=== PATIENT | male | born 1940 | race Caucasian/White ===

== ENCOUNTER 2016-10-16 09:15 | Emergency (ER) | payer MEDICARE, OTHER ==
[~2016-10-16] VITALS: Ht 179.1 cm; Wt 91.0 kg
[~2016-10-16 09:15] MED LIST: ALLO100 PO; AMLO5TAB96 PO; ASPI81 PO; CENTTAB9 PO; COLC1TAB7 PO; LISI-363 PO; NAPR250T57 PO; OMEP20CA5 PO; TRAV0.00 EACH EYE; ZOCO10TA PO
[2016-10-16 09:24] VITALS: BP 136/90; PULSE 99; RESP 17; TEMP 98.1; O2SAT 98
--- NOTE | 2016-10-16 09:54 | PD ---
HPI Chief Complaint: GI Complaint Time Seen by Provider: 09:54 Travel History International Travel<30 days: No Contact w/Intl Traveler<30days: No Traveled to known affect area: No History of Present Illness HPI 76-year-old male came to the emergency room with history of diarrhea since past 2 days. Patient says that last night he was unable to stop going to the bathroom. He was up every 10 minutes. The stool is runny but no blood. He does not have any other symptoms like abdominal pain or vomiting. No known sick contacts. No recent antibiotic use or hospitalization. [facility] Past Medical History Narrative Medical List of his past medical, surgical, social and family history was reviewed from the nursing note. Arthritis: Yes Cancer: Yes (MELANOMA FACE) High Cholesterol: Yes Diabetes: No Diminished Hearing: No GERD: Yes Glaucoma: Yes Gout: Yes Hepatitis: No Hiatal Hernia: Yes (GERD HX) Hypertension: Yes Inguinal Hernia: Yes Thyroid Disease: No Past Surgical History Abdominal Surgery: Yes (LIH) Cardiac Surgery: No Ear Surgery: No Endocrine Surgery: No Eye Surgery: No Genitourinary Surgery: Yes (RENAL CALC. RETRIEVAL) Gynecologic Surgery: No Oral Surgery: Yes (T & A, EXC. FB ESOPHAGUS, WISDOM TEETH EXTR.) Pacemaker: No Thoracic Surgery: No Other Surgery: Yes (HERNIA REPAIR) Social History Alcohol Use: Yes (2-3 DRINKS A WEEK) Tobacco Use: No Substance Use: No Allergies-Medications (Allergen,Severity, Reaction): Coded Allergies: No Known Allergies (Verified , 10/18/16) Comments No known drug allergies. Reported Meds & Prescriptions Reported Meds & Active Scripts Active Cipro (Ciprofloxacin HCl) 500 Mg Tab 500 Mg PO BID 5 Days Lomotil (Diphenoxylate-Atropine) 2.5-0.025 Mg Tab 2 Tab PO Q6H PRN Reported Aspirin 81 Mg Chew 81 Mg CHEW DAILY Amlodipine (Amlodipine Besylate) 5 Mg Tab 5 Mg PO DAILY Lisinopril 20 Mg Tab 20 Mg PO DAILY Omeprazole 20 Mg Tab 20 Mg PO DAILY Allopurinol 300 Mg Tab 300 Mg PO DAILY Narrative Medication List of his home medications reviewed from the nursing note. Review of Systems Except as stated in HPI: all other systems reviewed are Neg Physical Exam Narrative GENERAL: Awake, alert, no obvious distress SKIN: Focused skin assessment warm/dry. HEAD: Atraumatic. Normocephalic. EYES: Pupils equal and round. No scleral icterus. No injection or drainage. ENT: No nasal bleeding or discharge. Dry mucous membrane and coated tongue. NECK: Trachea midline. No JVD. CARDIOVASCULAR: Regular rate and rhythm. No murmur appreciated. RESPIRATORY: No accessory muscle use. Clear to auscultation. Breath sounds equal bilaterally. GASTROINTESTINAL: Abdomen soft, non-tender, nondistended. Hepatic and splenic margins not palpable. MUSCULOSKELETAL: No obvious deformities. No clubbing. No cyanosis. No edema. NEUROLOGICAL: Awake and alert. No obvious cranial nerve deficits. Motor grossly within normal limits. Normal speech. PSYCHIATRIC: Appropriate mood and affect; insight and judgment normal. Data Data Last Documented VS Orders Basic Metabolic Panel (Bmp) (10/16/16 09:59) Complete Blood Count With Diff (10/16/16 09:59) Iv Access Insert/Monitor (10/16/16 09:59) Ecg Monitoring (10/16/16 09:59) Oximetry (10/16/16 09:59) Sodium Chlor 0.9% 1000 Ml Inj (Ns 1000 M (10/16/16 09:59) Sodium Chloride 0.9% Flush (Ns Flush) (10/16/16 10:00) C Diff Toxin Pcr (10/16/16 09:59) Sodium Chlor 0.9% 1000 Ml Inj (Ns 1000 M (10/16/16 12:00) Labs MDM Medical Decision Making Medical Screen Exam Complete: Yes Emergency Medical Condition: Yes Medical Record Reviewed: Yes Differential Diagnosis Diarrhea, dehydration, C. difficile Narrative Course 10:19 AM awaiting for the blood test results. Patient was ordered for 1 L of IV fluid bolus. He did have a stool sample and I have ordered for a C. difficile. 12:17 PM blood test results of back and suggestive of dehydration. I ordered a second liter of IV fluid which patient is currently getting. He did not have anymore bowel movements since 10:30 but he also did not eat or drink anything. I have asked the nurse to give him some chyna crackers and water. I was told by the lab that the C. difficile will take another 4-5 hours to be resulted. At this point I'm comfortable discharging the patient home. He will not be started on loperamide till I have the C. difficile result back. Procedures EKG Prior to Arrival: No Diagnosis Primary Impression: Diarrhea Qualified Code: R19.7 - Diarrhea, unspecified type Additional Impression: Dehydration Referrals: Primary Care Physician 2 days Additional Instructions: Please return to the ER if the condition worsens or any other new concerns. The stool test result is pending. We will call you if it is positive. If it is not then he can start herself on Imodium [id number]. Please follow-up with your primary care in couple days. Disposition: 01 DISCHARGE HOME Condition: Stable Asia Galeas MD Oct 16, 2016 09:54 Basophils (%) (Auto) 2.2 % Neutrophils # (Auto) 4.4 TH/MM3 Lymphocytes # (Auto) 0.4 TH/MM3 Monocytes # (Auto) 0.5 TH/MM3 Eosinophils # (Auto) 0.1 TH/MM3 Basophils # (Auto) 0.1 TH/MM3 CBC Comment DIFF FINAL Differential Comment Sodium Level 143 MEQ/L Potassium Level 4.1 MEQ/L Chloride Level 113 MEQ/L Carbon Dioxide Level 18.0 MEQ/L Anion Gap 12 MEQ/L Blood Urea Nitrogen 20 MG/DL Creatinine 1.50 MG/DL Estimat Glomerular Filtration 46 ML/MIN Rate Random Glucose 107 MG/DL Calcium Level 8.3 MG/DL MDM Medical Decision Making Medical Screen Exam Complete: Yes Emergency Medical Condition: Yes Medical Record Reviewed: Yes Differential Diagnosis Diarrhea, dehydration, C. difficile Narrative Course 10:19 AM awaiting for the blood test results. Patient was ordered for 1 L of IV fluid bolus. He did have a stool sample and I have ordered for a C. difficile. 12:17 PM blood test results of back and suggestive of dehydration. I ordered a second liter of IV fluid which patient is currently getting. He did not have anymore bowel movements since 10:30 but he also did not eat or drink anything. I have asked the nurse to give him some chyna crackers and water. I was told by the lab that the C. difficile will take another 4-5 hours to be resulted. At this point I'm comfortable discharging the patient home. He will not be started on loperamide till I have the C. difficile result back. Procedures EKG Prior to Arrival: No Diagnosis Primary Impression: Diarrhea Qualified Code: R19.7 - Diarrhea, unspecified type Additional Impression: Dehydration Referrals: Primary Care Physician 2 days Additional Instructions: Please return to the ER if the condition worsens or any other new concerns. The stool test result is pending. We will call you if it is positive. If it is not then he can start herself on Imodium [id number]. Please follow-up with your primary care in couple days. Disposition: 01 DISCHARGE HOME Condition: Stable Asia Galeas MD Oct 16, 2016 09:54
[2016-10-16] MEDS ORDERED: SODIUM CHLOR 0.9% 1000 ML INJ 1,000 ML IV SCH (09:59)
[2016-10-16] MEDS ORDERED: SODIUM CHLORIDE 0.9% FLUSH 10 ML FLUSH IV FLUSH PRN (10:00)
[2016-10-16] MEDS ORDERED: ALLO300T2 PO (10:33)
[2016-10-16] MEDS ORDERED: ASPI81CH CHEW (10:33)
[2016-10-16] MEDS ORDERED: LISI-515 PO (10:33)
[2016-10-16] MEDS ORDERED: OMEP20TA PO (10:33)
[2016-10-16] MEDS ORDERED: AMLO5TAB2 PO (10:33)
[2016-10-16 11:03] VITALS: BP 142/80; PULSE 80; RESP 16; O2SAT 95
[2016-10-16 11:10] LABS: AUTOMATED NEUTROPHIL # 4.4 TH/MM3 (1.8-7.7); BASOPHIL # 0.1 TH/MM3 (0-0.2); BASOPHIL % 2.2 % (0.0-2.0); EOSINOPHIL # 0.1 TH/MM3 (0-0.4); EOSINOPHIL % 1.4 % (0.0-4.0); HEMATOCRIT 48.7 % (39.0-51.0); LYMPH % 6.9 % (9.0-44.0); LYMPHOCYTE # 0.4 TH/MM3 (1.0-4.8); MEAN CELL VOLUME 88.7 FL (80.0-100.0); MEAN CORPUSCULAR HEMOGLOBIN 28.5 PG (27.0-34.0); MEAN CORPUSCULAR HGB CONC 32.1 % (32.0-36.0); MONO % 9.1 % (0.0-8.0); NEUT % 80.4 % (16.0-70.0); PLATELET COUNT 109 TH/MM3 (150-450); RED BLOOD COUNT 5.49 MIL/MM3 (4.50-5.90); RED CELL DISTRIBUTION WIDTH 14.4 % (11.6-17.2); WHITE BLOOD COUNT 5.5 TH/MM3 (4.0-11.0)
[2016-10-16 11:19] LABS: POTASSIUM 4.1 MEQ/L (3.5-5.1)
[2016-10-16 11:25] LABS: HEMO FLAGS DIFF FINAL
[2016-10-16] MEDS ORDERED: SODIUM CHLOR 0.9% 1000 ML INJ 1,000 ML IV ONE (12:00)
[2016-10-16 12:09] VITALS: BP 132/70; PULSE 69; RESP 18; O2SAT 99
[2016-10-16 14:22] LABS: C. DIFF EPI 027 PRESUMPTIVE NEGATIVE (NEGATIVE); C. DIFF TOXIN PCR NEGATIVE (NEGATIVE)
== END 2016-10-16 13:38 | disposition home or self-care (01) ==
LOC: PHED 09:15
DX: R19.7 Diarrhea, unspecified (principal); E86.0 Dehydration; I10 Essential (primary) hypertension; E78.00 Pure hypercholesterolemia, unspecified; Z87.19 Personal history of other diseases of the digestive system; Z87.39 Personal history of other diseases of the musculoskeletal system and connective tissue; Z85.828 Personal history of other malignant neoplasm of skin; Z86.69 Personal history of other diseases of the nervous system and sense organs
CPT/HCPCS: 80048; 85025; 87493; 96360; 96361; 99284; J7030

== ENCOUNTER 2016-10-18 09:11 | Emergency (ER) | payer MEDICARE, OTHER ==
[~2016-10-18] VITALS: Ht 180.3 cm; Wt 91.0 kg
[~2016-10-18 09:11] MED LIST changes: -ALLO100 PO; +ALLO300T2 PO; +AMLO5TAB2 PO; -AMLO5TAB96 PO; -ASPI81 PO; +ASPI81CH CHEW; -CENTTAB9 PO; -COLC1TAB7 PO; -LISI-363 PO; +LISI-515 PO; -NAPR250T57 PO; -OMEP20CA5 PO; +OMEP20TA PO; -TRAV0.00 EACH EYE; -ZOCO10TA PO
[2016-10-18 09:22] VITALS: BP 126/70; PULSE 79; RESP 16; TEMP 97.7; O2SAT 96
[2016-10-18] MEDS ORDERED: CIPROFLOXACIN 500 MG TAB PO ONE (10:15)
[2016-10-18] MEDS ORDERED: SODIUM CHLOR 0.9% 1000 ML INJ 1,000 ML IV SCH (10:15)
[2016-10-18] MEDS ORDERED: DIPHENOXYLATE/ATROPINE 2.5 MG/0.025 MG TAB PO ONE (10:15)
[2016-10-18 10:31] LABS: AUTOMATED NEUTROPHIL # 4.2 TH/MM3 (1.8-7.7); BASOPHIL % 0.5 % (0.0-2.0); EOSINOPHIL # 0.1 TH/MM3 (0-0.4); EOSINOPHIL % 1.6 % (0.0-4.0); HEMATOCRIT 47.2 % (39.0-51.0); LYMPH % 11.7 % (9.0-44.0); LYMPHOCYTE # 0.6 TH/MM3 (1.0-4.8); MEAN CORPUSCULAR HGB CONC 32.5 % (32.0-36.0); MONO % 9.8 % (0.0-8.0); NEUT % 76.4 % (16.0-70.0); PLATELET COUNT 125 TH/MM3 (150-450); RED CELL DISTRIBUTION WIDTH 13.9 % (11.6-17.2); WHITE BLOOD COUNT 5.4 TH/MM3 (4.0-11.0)
[2016-10-18 10:32] LABS: HEMO FLAGS DIFF FINAL
[2016-10-18 10:38] LABS: CHLORIDE 113 MEQ/L (98-107); POTASSIUM 4.2 MEQ/L (3.5-5.1); SODIUM (NA) 141 MEQ/L (136-145)
[2016-10-18 10:42] LABS: ANION GAP 11 MEQ/L (5-15); BICARBONATE 17.4 MEQ/L (21.0-32.0); BLOOD UREA NITROGEN 19 MG/DL (7-18)
[2016-10-18 10:45] LABS: ALT (GPT) 20 U/L (12-78); AST (GOT) 24 U/L (15-37); GLOMERULAR FILTRATION RATE 50 ML/MIN (>89)
[2016-10-18 10:46] LABS: TOTAL BILIRUBIN ADULT 0.6 MG/DL (0.2-1.0)
[2016-10-18 10:48] LABS: ALKALINE PHOSPHATASE 66 U/L (45-117)
[2016-10-18] MEDS ORDERED: LOMO2.5T PO (11:18)
[2016-10-18] MEDS ORDERED: CIPR-9 PO (11:18)
--- NOTE | 2016-10-18 11:18 | PD ---
HPI Chief Complaint: GI Complaint Time Seen by Provider: 09:50 Travel History International Travel<30 days: No Contact w/Intl Traveler<30days: No Traveled to known affect area: No History of Present Illness HPI This 76-year-old man who presents to the emergency department complaining of diarrhea. He states he's been having loose watery stools, every hour or so, for the past 5 days. He was on multiple times through the night with watery diarrhea. No sick contacts, no recent travel, no unusual foods. He's never had similar trouble before. No blood in his stool. Maybe a little bit immune this. He was seen here a couple days ago and had a negative C. difficile and some labs show just some dehydration. He has been taking loperamide but without significant relief. No fevers. No vomiting. He drinks city water. He 's got 18 times or so in the past 24 hours. History Past Medical History Narrative Medical Hypertension Gout Tetanus Vaccination: > 5 Years Influenza Vaccination: Yes Social History Alcohol Use: Yes (2-3 DRINKS A WEEK) Tobacco Use: No Allergies-Medications (Allergen,Severity, Reaction): Coded Allergies: No Known Allergies (Verified , 10/18/16) Reported Meds & Prescriptions Reported Meds & Active Scripts Active Reported Aspirin 81 Mg Chew 81 Mg CHEW DAILY Amlodipine (Amlodipine Besylate) 5 Mg Tab 5 Mg PO DAILY Lisinopril 20 Mg Tab 20 Mg PO DAILY Omeprazole 20 Mg Tab 20 Mg PO DAILY Allopurinol 300 Mg Tab 300 Mg PO DAILY Review of Systems Except as stated in HPI: all other systems reviewed are Neg Physical Exam Narrative GENERAL: Well-appearing 76 old man, no acute distress. SKIN: Focused skin assessment warm/dry. HEAD: Atraumatic. Normocephalic. EYES: Pupils equal and round. No scleral icterus. No injection or drainage. ENT: No nasal bleeding or discharge. Mucous membranes pink and moist. NECK: Trachea midline. No JVD. CARDIOVASCULAR: Regular rate and rhythm. No murmur appreciated. RESPIRATORY: No accessory muscle use. Clear to auscultation. Breath sounds equal bilaterally. GASTROINTESTINAL: Abdomen soft, non-tender, nondistended. Hepatic and splenic margins not palpable. MUSCULOSKELETAL: No obvious deformities. No clubbing. No cyanosis. No edema. NEUROLOGICAL: Awake and alert. No obvious cranial nerve deficits. Motor grossly within normal limits. Normal speech. PSYCHIATRIC: Appropriate mood and affect; insight and judgment normal. Data Data Last Documented VS Vital Signs Date Time Temp Pulse Resp B/P Pulse Ox O2 Delivery O2 Flow Rate FiO2 10/18/16 09:22 97.7 79 16 126/70 96 Orders Complete Blood Count With Diff (10/18/16 10:05) Comprehensive Metabolic Panel (10/18/16 10:05) Iv Access Insert/Monitor (10/18/16 10:05) Enteric Path (Stool) (10/18/16 10:05) Stool Ova And Parasite Screen (10/18/16 10:05) Diphenoxylate/Atropine Tab (Lomotil Tab) (10/18/16 10:15) Sodium Chlor 0.9% 1000 Ml Inj (Ns 1000 M (10/18/16 10:15) Ciprofloxacin (Cipro) (10/18/16 10:15) Labs Laboratory Tests Test 10/18/16 10:15 White Blood Count 5.4 TH/MM3 Red Blood Count 5.30 MIL/MM3 Hemoglobin 15.4 GM/DL Hematocrit 47.2 % Mean Corpuscular Volume 89.0 FL Mean Corpuscular Hemoglobin 29.0 PG Mean Corpuscular Hemoglobin 32.5 % Concent Red Cell Distribution Width 13.9 % Platelet Count 125 TH/MM3 Mean Platelet Volume 9.5 FL Neutrophils (%) (Auto) 76.4 % Lymphocytes (%) (Auto) 11.7 % Monocytes (%) (Auto) 9.8 % Eosinophils (%) (Auto) 1.6 % Basophils (%) (Auto) 0.5 % Neutrophils # (Auto) 4.2 TH/MM3 Lymphocytes # (Auto) 0.6 TH/MM3 Monocytes # (Auto) 0.5 TH/MM3 Eosinophils # (Auto) 0.1 TH/MM3 Basophils # (Auto) 0.0 TH/MM3 CBC Comment DIFF FINAL Differential Comment Sodium Level 141 MEQ/L Potassium Level 4.2 MEQ/L Chloride Level 113 MEQ/L Carbon Dioxide Level 17.4 MEQ/L Anion Gap 11 MEQ/L Blood Urea Nitrogen 19 MG/DL Creatinine 1.40 MG/DL Estimat Glomerular Filtration 50 ML/MIN Rate Random Glucose 104 MG/DL Calcium Level 8.5 MG/DL Total Bilirubin 0.6 MG/DL Aspartate Amino Transf 24 U/L (AST/SGOT) Alanine Aminotransferase 20 U/L (ALT/SGPT) Alkaline Phosphatase 66 U/L Total Protein 7.3 GM/DL Albumin 3.7 GM/DL [facility] Medical Decision Making Medical Screen Exam Complete: Yes Emergency Medical Condition: Yes Interpretation(s) LABS: CBC remarkable for platelet count 125 CMP still showing hyperchloremic acidosis. Differential Diagnosis Infectious enteritis, colitis, diverticulitis, parasitic infection, other Narrative Course Medical decision making 76 old man with watery diarrhea ongoing for about 5 days now. We'll send stool culture, stool O and P. We'll also switch to Lomotil, treated with antibiotics. Recommend GI follow-up. Diagnosis Primary Impression: Diarrhea Additional Instructions: Take Lomotil as prescribed. Take Cipro as prescribed. Drink plenty of fluids to stay well-hydrated. Follow-up with your university librarian at the first available appointment. Return to the emergency department for bloody stool, high fevers, abdominal pain , or any other new or worsening symptoms. Med/Other Pt SpecificInfo: Prescription(s) given Scripts Ciprofloxacin (Cipro)500 Mg [id number] Mg PO BID 5 Days Ref 0 Prov:Steven Freeman MD 10/18/16 Diphenoxylate-Atropine (Lomotil)2.5-0.025 Mg Tab2 Tab PO Q6H PRN (DIARRHEA) #30 TAB Ref 0 Prov:Steven Freeman MD 10/18/16 Disposition: 01 DISCHARGE HOME Condition: Stable Steven Freeman MD Oct 18, 2016 11:18
[2016-10-18 11:20] VITALS: BP 118/69; PULSE 67; RESP 14; O2SAT 96
== END 2016-10-18 11:28 | disposition home or self-care (01) ==
LOC: PHED 09:11
DX: R19.7 Diarrhea, unspecified (principal); I10 Essential (primary) hypertension; Z87.39 Personal history of other diseases of the musculoskeletal system and connective tissue
CPT/HCPCS: 80053; 85025; 96360; 99284; J7030

== ENCOUNTER 2016-11-14 12:15 | Emergency (ER) | payer MEDICARE, OTHER ==
[~2016-11-14] VITALS: Ht 180.3 cm; Wt 89.6 kg
[~2016-11-14 12:15] MED LIST changes: +CIPR-9 PO; +LOMO2.5T PO
[2016-11-14 12:37] VITALS: BP 155/85; PULSE 91; RESP 16; TEMP 98.5; O2SAT 98
[2016-11-14] MEDS ORDERED: BUPIVACAINE HCL PF 0.5% 10 ML VIAL INFIL ONE (12:45)
[2016-11-14] MEDS ORDERED: LIDOCAINE HCL 1% 50 ML VIAL INFIL ONE (12:45)
--- NOTE | 2016-11-14 12:48 | PD ---
HPI Chief Complaint: Laceration/Skin Injury Time Seen by Provider: 12:42 Travel History International Travel<30 days: No Contact w/Intl Traveler<30days: No Traveled to known affect area: No History of Present Illness HPI 76-year-old male presents to the emergency room for evaluation of a laceration to his left thumb. Patient was using a table saw and got his thumb too close to the blade. He immediately applied pressure and came to the emergency room without washing it. He takes aspirin but no other blood thinners. Denies loss of sensation or significant pain. Last tetanus was less than 10 years ago. No history of diabetes. PFSH Past Medical History Hx Anticoagulant Therapy: Yes (BABY ASA DAILY) Arthritis: Yes Cancer: Yes (MELANOMA FACE) Cardiovascular Problems: Yes (htn on meds) High Cholesterol: Yes Diabetes: No Diminished Hearing: No GERD: Yes Glaucoma: Yes Gout: Yes Hepatitis: No Hiatal Hernia: Yes (GERD HX) Hypertension: Yes Inguinal Hernia: Yes Thyroid Disease: No Past Surgical History Abdominal Surgery: Yes (LIH) Cardiac Surgery: No Ear Surgery: No Endocrine Surgery: No Eye Surgery: No Genitourinary Surgery: Yes (RENAL CALC. RETRIEVAL) Gynecologic Surgery: No Oral Surgery: Yes (T & A, EXC. FB ESOPHAGUS, WISDOM TEETH EXTR.) Pacemaker: No Thoracic Surgery: No Other Surgery: Yes (HERNIA REPAIR) Social History Alcohol Use: Yes (2-3 DRINKS A WEEK) Tobacco Use: No Substance Use: No Allergies-Medications (Allergen,Severity, Reaction): Coded Allergies: No Known Allergies (Verified , 11/14/16) Reported Meds & Prescriptions Reported Meds & Active Scripts Active Reported Aspirin 81 Mg Chew 81 Mg CHEW DAILY Amlodipine (Amlodipine Besylate) 5 Mg Tab 5 Mg PO DAILY Lisinopril 20 Mg Tab 20 Mg PO DAILY Omeprazole 20 Mg Tab 20 Mg PO DAILY Allopurinol 300 Mg Tab 300 Mg PO DAILY Review of Systems Except as stated in HPI: all other systems reviewed are Neg Physical Exam Narrative GENERAL: Well-nourished, well-developed elderly male in no acute distress. Afebrile. Ambulatory. SKIN: Focused skin assessment warm/dry. There is a 2 cm rigid, deep laceration of the left distal thumb. No nail involvement. No obvious foreign bodies. None bleeding. HEAD: Normocephalic. EYES: No scleral icterus. No injection or drainage. NECK: Supple, trachea midline. No JVD or lymphadenopathy. CARDIOVASCULAR: Regular rate and rhythm without murmurs, gallops, or rubs. RESPIRATORY: Breath sounds equal bilaterally. No accessory muscle use. EXTREMITY: No significant tenderness to palpation. Less than 2 second capillary refill distally. Distal sensation intact. Full range motion of the left thumb. Data Data Last Documented VS Vital Signs Date Time Temp Pulse Resp B/P Pulse Ox O2 Delivery O2 Flow Rate FiO2 11/14/16 12:41 16 11/14/16 12:37 98.5 91 155/85 98 Orders Bupivacaine Pf 0.5% Inj (Marcaine Pf 0.5 (11/14/16 12:45) Lidocaine 1% Inj (50 Ml) (Xylocaine 1% I (11/14/16 12:45) MDM Medical Decision Making Medical Screen Exam Complete: Yes Emergency Medical Condition: Yes Medical Record Reviewed: Yes Differential Diagnosis Laceration versus abrasion versus contusion versus fracture Narrative Course 76-year-old male presents to the emergency room for evaluation of left distal thumb laceration that occurred just prior to arrival after patient cut his finger on a table fall. Physical exam reveals a 2 cm rigid laceration to the distal thumb without nail involvement. Sensation intact with less than 2 second capillary refill distally. The laceration was repaired, see procedure note for details. Patient discharged with prescription for Keflex and wound care instructions. Told to follow up with primary care physician or return for worsening symptoms. He understands and agrees to plan. Procedures Procedure Narrative LACERATION LOCATION: Left distal thumb LENGTH: 2 cm NUMBER OF STITCHES/EUGENIA: 7 simple interrupted REPAIR: The area of the laceration was prepped with Betadine and sterilely draped. Digital block performed using 1% lidocaine and 0.5% bupivacaine. The wound was copiously irrigated and explored without evidence of foreign body, tendon injury or neurovascular injury. The wound was closed using 5-0 Prolene. This was a single layer repair. A sterile dressing was applied. The patient was advised to keep the dressing clean and dry. Patient tolerated the procedure well. Diagnosis Primary Impression: Laceration of left thumb Qualified Code: S61.012A - Laceration of left thumb, initial encounter Referrals: Clinic Licensed Practical Nurse Patient Instructions: Finger Laceration (ED), General Instructions Additional Instructions: Rest and drink plenty of fluids. Keflex as directed, until gone. Take Tylenol as directed, as needed for pain. Keep wound clean and dry. Apply triple antibiotic ointment daily. Return in 7- 10 days to have sutures removed. Follow-up with a primary care physician. Return to the emergency room for worsening symptoms. Med/Other Pt SpecificInfo: Wound Care Disposition: 01 DISCHARGE HOME Condition: Stable Cecelia Johnson November 14, 2016 12:48
[2016-11-14] MEDS ORDERED: CEPH-460 PO (13:25)
== END 2016-11-14 13:40 | disposition home or self-care (01) ==
LOC: PHEFT 12:15
DX: S61.012A Laceration without foreign body of left thumb without damage to nail, initial encounter (principal); W29.8XXA Contact with other powered hand tools and household machinery, initial encounter; I10 Essential (primary) hypertension
CPT/HCPCS: 12001

== ENCOUNTER 2017-09-14 18:37 | Emergency (ER) | payer MEDICARE, OTHER ==
[2017-09-14] VITALS (7 sets, daily range): BP systolic 122–197; BP diastolic 61–99; PULSE 77–134; RESP 16–18; TEMP 98.5; O2SAT 96–97
[~2017-09-14] VITALS: Ht 179.1 cm; Wt 96.0 kg
[~2017-09-14 18:37] MED LIST changes: +ASPI-516 CHEW; -ASPI81CH CHEW; +CEPH-460 PO; -CIPR-9 PO; -LOMO2.5T PO; -OMEP20TA PO; +OMEP20TA93 PO
[2017-09-14] MEDS ORDERED: DILTIAZEM HCL 25 MG/5 ML VIAL IV ONE (19:30)
[2017-09-14] MEDS ORDERED: SODIUM CHLORIDE 0.9% FLUSH 10 ML FLUSH IVF PRN (19:30)
[2017-09-14] MEDS ORDERED: ASPIRIN 81 MG CHEW TAB PO ONE (19:30)
[2017-09-14 19:47] LABS: AUTOMATED NEUTROPHIL # 3.8 TH/MM3 (1.8-7.7); BASOPHIL # 0.1 TH/MM3 (0-0.2); BASOPHIL % 2.1 % (0.0-2.0); EOSINOPHIL # 0.4 TH/MM3 (0-0.4); EOSINOPHIL % 6.4 % (0.0-4.0); HEMATOCRIT 45.8 % (39.0-51.0); HEMOGLOBIN 15.9 GM/DL (13.0-17.0); LYMPH % 18.3 % (9.0-44.0); MEAN CELL VOLUME 88.3 FL (80.0-100.0); MEAN CORPUSCULAR HEMOGLOBIN 30.7 PG (27.0-34.0); MEAN CORPUSCULAR HGB CONC 34.8 % (32.0-36.0); MEAN PLATELET VOLUME 10.9 FL (7.0-11.0); MONO % 7.4 % (0.0-8.0); MONOCYTE # 0.4 TH/MM3 (0-0.9); NEUT % 65.8 % (16.0-70.0); PLATELET COUNT 143 TH/MM3 (150-450); RED BLOOD COUNT 5.19 MIL/MM3 (4.50-5.90); RED CELL DISTRIBUTION WIDTH 14.2 % (11.6-17.2); WHITE BLOOD COUNT 5.7 TH/MM3 (4.0-11.0)
[2017-09-14] MEDS ORDERED: DILTIAZEM HCL 25 MG/5 ML VIAL IV PUSH PRN (20:00)
[2017-09-14 20:04] LABS: CHLORIDE 112 MEQ/L (98-107); SODIUM (NA) 142 MEQ/L (136-145)
[2017-09-14 20:06] LABS: CALCIUM 8.3 MG/DL (8.5-10.1)
--- NOTE | 2017-09-14 20:06 | PD ---
HPI Chief Complaint: Cardiac Complaint Time Seen by Provider: 19:20 Travel History International Travel<30 days: No Contact w/Intl Traveler<30days: No Traveled to known affect area: No History of Present Illness HPI 77-year-old male presents to the emergency department by private transportation the care of her spouse for evaluation of elevated blood pressure and sensation of rapid heart rate. Patient states he has had elevated blood pressure over the past 5 days. Patient does have a history of hypertension and takes amlodipine daily. Patient denies any previous history of rate related issues. Patient denies any chest pain or shortness of breath. Patient is noted mild diaphoresis but denies any nausea vomiting. Patient denies any referred discomfort to the neck jaw back shoulder arms or abdomen. Patient had no near syncope or syncope. Patient denies any recent long distance travel protracted bedrest or surgical procedure. Patient was encouraged by his primary care provider whom he saw on Friday to monitor his blood pressure and they would address adjusting his blood pressure medication at follow-up visit if necessary. Patient rates discomfort 0/10 intensity. PFSH Past Medical History Narrative Medical Hypertension, dyslipidemia, gouty arthritis, melanoma, esophageal foreign body removal, inguinal herniorrhaphy; occasional alcohol use; nursing notes reviewed Hx Anticoagulant Therapy: Yes (asa 81mg) Arthritis: Yes Cancer: Yes (MELANOMA FACE) Cardiovascular Problems: Yes (htn on meds) High Cholesterol: Yes Diabetes: No Diminished Hearing: No GERD: Yes Glaucoma: Yes Gout: Yes Hepatitis: No Hiatal Hernia: Yes (GERD HX) Hypertension: Yes Inguinal Hernia: Yes Medical other: No Respiratory: No Thyroid Disease: No Tetanus Vaccination: > 5 Years Influenza Vaccination: Yes Past Surgical History Abdominal Surgery: Yes (LI) Cardiac Surgery: No Ear Surgery: No Endocrine Surgery: No Eye Surgery: No Genitourinary Surgery: Yes (RENAL CALC. RETRIEVAL) Gynecologic Surgery: No Neurologic Surgery: No Oral Surgery: Yes (T & A, EXC. FB ESOPHAGUS, WISDOM TEETH EXTR.) Pacemaker: No Thoracic Surgery: No Other Surgery: Yes (HERNIA REPAIR- right groin, left side of face melanoma removal) Social History Alcohol Use: Yes (socially mix drinks, beer or wine) Tobacco Use: No Substance Use: No Allergies-Medications (Allergen,Severity, Reaction): Coded Allergies: No Known Allergies (Verified Adverse Reaction, Unknown, 09/14/17) Reported Meds & Prescriptions Reported Meds & Active Scripts Active Reported Aspirin 81 Mg Chew 81 Mg CHEW DAILY Amlodipine (Amlodipine Besylate) 5 Mg Tab 5 Mg PO DAILY Lisinopril 20 Mg Tab 20 Mg PO DAILY Omeprazole 20 Mg Tab 20 Mg PO DAILY Allopurinol 300 Mg Tab 300 Mg PO DAILY Review of Systems Except as stated in HPI: all other systems reviewed are Neg General / Constitutional: No: Fever, Chills HENT: No: Congestion Cardiovascular: Positive: Palpitations, Tachycardia, Diaphoresis, No: Chest Pain or Discomfort Respiratory: No: Shortness of Breath Gastrointestinal: No: Nausea, Vomiting, Abdominal Pain Genitourinary: No: Dysuria, Flank Pain Musculoskeletal: No: Myalgias, Arthralgias Skin: No Rash Neurologic: No: Weakness, Dizziness, Syncope Psychiatric: No: Anxiety Hematologic/Lymphatic: No: Lymph Node Enlargement Physical Exam Narrative GENERAL: Well-developed well-nourished male in no acute distress no respiratory distress SKIN: Warm and dry. HEAD: Normocephalic. EYES: No scleral icterus. No injection or drainage. NECK: Supple, trachea midline. No JVD or lymphadenopathy. CARDIOVASCULAR: Increased regular rate and rhythm without murmurs, gallops, or rubs. RESPIRATORY: Breath sounds equal bilaterally. No accessory muscle use. GASTROINTESTINAL: Abdomen soft, non-tender, nondistended. MUSCULOSKELETAL: No cyanosis, or edema. BACK: Nontender without obvious deformity. No CVA tenderness. Data Data Last Documented VS Vital Signs Date Time Temp Pulse Resp B/P (MAP) Pulse Ox O2 Delivery O2 Flow Rate FiO2 09/14/17 20:38 77 141/69 09/14/17 20:06 18 96 Room Air 09/14/17 18:53 98.5 Orders Orders Electrocardiogram (09/14/17 19:20) Basic Metabolic Panel (Bmp) (09/14/17 19:20) B-Type Natriuretic Peptide (09/14/17 19:20) Ckmb (Isoenzyme) Profile (09/14/17 19:20) Complete Blood Count With Diff (09/14/17 19:20) Magnesium (Mg) (09/14/17 19:20) Prothrombin Time / Inr (Pt) (09/14/17 19:20) Act Partial Throm Time (Ptt) (09/14/17 19:20) Troponin I (09/14/17 19:20) Ecg Monitoring (09/14/17 19:20) Bilateral Bp Monitoring (09/14/17 19:20) Iv Access Insert/Monitor (09/14/17 19:20) Oximetry (09/14/17 19:20) Oxygen Administration (09/14/17 19:20) Aspirin Chew (Aspirin Chew) (09/14/17 19:30) Sodium Chloride 0.9% Flush (Ns Flush) (09/14/17 19:30) Thyroid Stimulating Hormone (09/14/17 19:20) Diltiazem Inj (Cardizem Inj) (09/14/17 19:30) Diltiazem Inj (Cardizem Inj) (09/14/17 20:00) Chest, Pa & Lat (09/14/17 ) Diltiazem Inj (Cardizem Inj) (09/14/17 20:15) Sodium Chloride 0.9% Flush (Ns Flush) (09/14/17 20:15) Electrocardiogram (09/14/17 ) Labs Laboratory Tests Test 09/14/17 19:25 White Blood Count 5.7 TH/MM3 Red Blood Count 5.19 MIL/MM3 Hemoglobin 15.9 GM/DL Hematocrit 45.8 % Mean Corpuscular Volume 88.3 FL Mean Corpuscular Hemoglobin 30.7 PG Mean Corpuscular Hemoglobin Concent 34.8 % Red Cell Distribution Width 14.2 % Platelet Count 143 TH/MM3 Mean Platelet Volume 10.9 FL Neutrophils (%) (Auto) 65.8 % Lymphocytes (%) (Auto) 18.3 % Monocytes (%) (Auto) 7.4 % Eosinophils (%) (Auto) 6.4 % Basophils (%) (Auto) 2.1 % Neutrophils # (Auto) 3.8 TH/MM3 Lymphocytes # (Auto) 1.0 TH/MM3 Monocytes # (Auto) 0.4 TH/MM3 Eosinophils # (Auto) 0.4 TH/MM3 Basophils # (Auto) 0.1 TH/MM3 CBC Comment DIFF FINAL Differential Comment Prothrombin Time 9.7 SEC Prothromb Time International Ratio 1.0 RATIO Activated Partial Thromboplast Time 26.2 SEC Blood Urea Nitrogen 16 MG/DL Creatinine 1.40 MG/DL Random Glucose 146 MG/DL Calcium Level 8.3 MG/DL Magnesium Level 2.0 MG/DL Sodium Level 142 MEQ/L Potassium Level 3.7 MEQ/L Chloride Level 112 MEQ/L Carbon Dioxide Level 23.7 MEQ/L Anion Gap 6 MEQ/L Estimat Glomerular Filtration Rate 49 ML/MIN Total Creatine Kinase 67 U/L Troponin I LESS THAN 0.02 NG/ML B-Type Natriuretic Peptide 76 PG/ML Thyroid Stimulating Hormone 3rd Gen 1.870 uIU/ML MDM Medical Decision Making Medical Screen Exam Complete: Yes Emergency Medical Condition: Yes Medical Record Reviewed: Yes Interpretation(s) EKG atrial flutter with rapid ventricular rate of [address] elevation or injury pattern Differential Diagnosis Arrhythmia, SVT, atrial flutter with rapid ventricular rate, metabolic disturbance, ACS, HI, thyroid dysfunction Narrative Course Patient placed on registered nurse cardiac telemetry with continuous pulse oximetry EKG performed shows atrial flutter with 2-[address] elevation or injury pattern; vagal maneuvers attempted without success; patient administered Cardizem will CBC is automated differential values in normal range. Patient given additional bolus of Cardizem 30 mg IV and converted to sinus rhythm with first-degree AV block rate 80 at 20:10 PM Lab values found to be in normal range except for renal insufficiency; cardiac enzymes values are within normal range; TSH values in normal range. Patient is stable at this time for outpatient management with change of amlodipine to Cardizem with recommendation for 1 day follow-up with primary care provider. Diagnosis Primary Impression: Paroxysmal atrial flutter Referrals: Primary Care Physician 1 day Patient Instructions: General Instructions Additional Instructions: Follow-up with primary care provider 1 day Stop amlodipine and begin Cardizem Return to the emergency department for any concerns or change in condition Monitor blood pressure twice daily Increase fluid hydration Med/Other Pt SpecificInfo: Prescription(s) given, Med Stopped (norvasc/ amlodipine) Scripts Diltiazem CD 24 HR (Cardizem CD 24 HR) 120 Mg Caper 120 MG PO DAILY, #30 CAP 0 Refills Prov: Anamaria Rick MD 09/14/17 Disposition: 01 DISCHARGE HOME Condition: Stable Anamaria Rick MD Sep 14, 2017 20:06
[2017-09-14 20:07] LABS: BICARBONATE 23.7 MEQ/L (21.0-32.0); BLOOD UREA NITROGEN 16 MG/DL (7-18); GLUCOSE,RANDOM 146 MG/DL (74-106)
[2017-09-14 20:09] LABS: PROTHROMBIN TIME - PATIENT 9.7 SEC (9.8-11.6)
[2017-09-14 20:10] LABS: GLOMERULAR FILTRATION RATE 49 ML/MIN (>89)
[2017-09-14 20:15] LABS: TROPONIN I LESS THAN 0.02 NG/ML (0.02-0.05)
[2017-09-14] MEDS ORDERED: DILTIAZEM INJ 125 MG in SODIUM CHLORIDE 0.9% INJ 100 ML IV PRN (20:15)
[2017-09-14] MEDS ORDERED: SODIUM CHLORIDE 0.9% FLUSH 10 ML FLUSH IV FLUSH PRN (20:15)
--- NOTE | 2017-09-14 20:21 | RADRPT ---
EXAM DATE/TIME: 09/14/2017 19:42 [facility] COMPARISON: No previous studies available for comparison. INDICATIONS : Patient feels like heart is racing. MEDICAL HISTORY : Hypertension. SURGICAL HISTORY : None. ENCOUNTER: Initial ACUITY: 1 day PAIN SCORE: 0/10 LOCATION: Bilateral chest FINDINGS: PA and lateral views of the chest demonstrate the lungs to be symmetrically aerated without evidence of mass, infiltrate or effusion. The cardiomediastinal contours are unremarkable. Osseous structure s are intact. CONCLUSION: 1. No active disease. Jayce Barney MD on September 14, 2017 at 20:17 Board Certified Radiologist. This report was verified electronically.
[2017-09-14] MEDS ORDERED: CARD120C4 PO (21:10)
[2017-09-14] MEDS ORDERED: DILTIAZEM-CD 120 MG CAP ER PO ONE (21:15)
--- NOTE | 2017-09-15 10:39 | EKG ---
Date Performed: 09/14/2017 Time Performed: 19:10:04 PTAGE: 77 years EKG: Rapid supraventricular tachycardia most consistent with atrial flutter ST DEVIATION AND MOD ERATE T-WAVE ABNORMALITY, CONSIDER INFERIOR ISCHEMIA Compared to previous tracing the patient now genoveva ears to be in atrial flutter with rapid v. rate ABNORMAL ECG PREVIOUS TRACING : 07/10/2010 11.28 DOCTOR: Dyan Friend Interpretating Date/Time 09/15/2017 10:37:22
--- NOTE | 2017-09-15 21:35 | EKG ---
Date Performed: 09/14/2017 Time Performed: 20:21:49 PTAGE: 77 years EKG: Sinus rhythm WITH FIRST DEGREE AV BLOCK NONSPECIFIC T-WAVE ABNORMALITY When compared to previous tracing, the pat ient is no longer Tachycardic. ABNORMAL ECG PREVIOUS TRACING : 09/14/2017 19.10 DOCTOR: Dyan Friend Interpretating Date/Time 09/15/2017 21:35:28
== END 2017-09-14 22:10 | disposition home or self-care (01) ==
LOC: PHED 18:37
DX: I48.92 Unspecified atrial flutter (principal); R61 Generalized hyperhidrosis; I10 Essential (primary) hypertension; R94.31 Abnormal electrocardiogram [ECG] [EKG]; Z79.82 Long term (current) use of aspirin
CPT/HCPCS: 71046; 80048; 82550; 83735; 83880; 84443; 84484; 85025; 85610; 85730; 93005; 96365; 96375; 96376